=== PATIENT | male | born 2000 | race Caucasian/White ===

== ENCOUNTER 2020-10-01 17:27 | Emergency (ER) | payer OTHER ==
[2020-10-01 17:41] VITALS: BP 135/72; PULSE 75; TEMP 99.4; BMI 28.7
== END 2020-10-01 18:03 | disposition home or self-care (01) ==
LOC: FER 17:27
DX: H93.13 Tinnitus, bilateral (principal); Z00.00 Encounter for general adult medical examination without abnormal findings
CPT/HCPCS: 99282-25

== ENCOUNTER 2024-02-27 12:33 | Emergency (ER) | payer OTHER ==
[2024-02-27 12:50] VITALS: BP 137/77; PULSE 86; RESP 18; TEMP 98.2; BMI 30.7
[2024-02-27] MEDS ORDERED: AMOX TR/POT CLAV 875MG/125MG TABLETS (FP) ONE (13:05)
[2024-02-27] MEDS ORDERED: DIPHTH,PERTUSS(ACELL),TET 0.5 ML DISP.SYRIN IM ONE (13:05)
[2024-02-27] MEDS: DIPHTH,PERTUSS(ACELL),TET 0.5 ML DISP.SYRIN IM ONE (13:08)
[2024-02-27] MEDS: AMOX TR/POT CLAV 875MG/125MG TABLETS (FP) PO ONE (13:08)
== END 2024-02-27 13:15 | disposition home or self-care (01) ==
LOC: FER 12:33
PROC: 3E0234Z Introduction of Serum, Toxoid and Vaccine into Muscle, Percutaneous Approach (ICD-10-PCS; principal; 2024-02-27)
DX: S41.152A Open bite of left upper arm, initial encounter (principal); W54.0XXA Bitten by dog, initial encounter; Z23 Encounter for immunization
CPT/HCPCS: 90715; 99283-25

== ENCOUNTER 2024-04-05 23:57 | Emergency (ER) | payer OTHER ==
[2024-04-06 00:03] VITALS: BP 147/99; PULSE 87; RESP 18; TEMP 98.4; BMI 29.0
[2024-04-06] MEDS ORDERED: IBUPROFEN 400 MG TABLET (FP) PO ONE (00:31)
[2024-04-06] MEDS ORDERED: diazePAM 5 MG TABLET ONE (00:32)
[2024-04-06] MEDS ORDERED: ACETAMINOPHEN 500 MG TABLET (FP) ONE (00:32)
[2024-04-06] MEDS ORDERED: LIDOCAINE 4% PATCH TP ONE (00:33)
[2024-04-06] MEDS: diazePAM 5 MG TABLET PO ONE (00:34)
[2024-04-06] MEDS: ACETAMINOPHEN 500 MG TABLET (FP) PO ONE (00:34)
[2024-04-06] MEDS: IBUPROFEN 400 MG TABLET (FP) PO ONE (00:35)
[2024-04-06] MEDS: LIDOCAINE 5% TOPICAL PATCH TP ONE (00:35)
[2024-04-06] MEDS ORDERED: oxyCODONE HCL 5 MG TABLET ONE (01:22)
[2024-04-06] MEDS: oxyCODONE HCL 5 MG TABLET PO ONE (01:23)
[2024-04-06] MEDS ORDERED: LIDOCAINE PATCH REMOVAL MC SCH (22:00)
== END 2024-04-06 01:56 | disposition home or self-care (01) ==
LOC: JER 23:57
DX: M62.830 Muscle spasm of back (principal); M54.50 Low back pain, unspecified
CPT/HCPCS: 99283-25